=== PATIENT | male | born 1930 | race Caucasian/White ===

== ENCOUNTER 2017-03-23 12:16 | Observation (INO) | payer OTHER ==
--- NOTE | ~2017-03-23 | DS ---
Discharge Summary [facility] [address] [place]. [address] NAME: SHERRIE MAURER : 30 STATUS : DIS Ludy PAT#: [id number] AGE: 87 ADM/REG DATE : 03/23/17 MR#: [id number] REPORT SERV DATE: 03/27/17 DICTATED BY: ARPITA GIBBONS DATE: 03/26/17 REPORT STATUS : Draft TRANSCRIBED BY: MODL DATE: 03/26/17 ADMISSION DATE: 03/23/2017 DISCHARGE DATE: 03/25/2017 DISPOSITION: Discharged back to [facility]. CONDITION: Stable. DIAGNOSES: 1. Hematuria, questionable etiology/resolved. 2. Pyuria, resolved. 3. Acute kidney injury likely secondary to dehydration, improved. 4. Urinary tension. 5. Coronary artery disease with history of multiple bypass. 6. Hypertension, primary, controlled. HOSPITAL COURSE: The patient is an 87-year-old elderly male, who was transferred to [facility] Emergency Room from [facility] with complaint of reggie blood in urine. The patient was a new resident at [place], was initially assessed by nurse practitioner on the and found to have reggie blood in urine, therefore the patient was transferred to [facility] Emergency Room for further evaluation. In the [facility] Emergency Room, the patient noted to have urinary retention after a 3-way Kuo was inserted. He was therefore admitted for further evaluation. The patient was found also to have an acute kidney injury likely secondary to dehydration, improved with IV fluids, and nursing staff to provide the patient with nectar thickened fluids every 2 hours while the patient asleep to ensure the patient drinks to avoid further dehydration. The patient's admission urinalysis on 03/23/2017 revealed pyuria, he did receive a dose of Rocephin in the ER, and urine culture from that date was negative, therefore a repeat of urinalysis was obtained on 03/24/2017, this showed much improvement with WBC only 21 compared to the initial WBC of 104. The patient did receive another dose of Rocephin that evening, repeat urine culture on 03/24/2017 was negative. The patient remained afebrile and WBC had remain normal, and was recently treated for UTI pneumonia at [facility] prior to transfer to [place]. I doubt the patient had a recurring UTI, therefore no further IV antibiotic was recommended. The patient with urinary retention, a 3-way Kuo was replaced. No further reggie blood noted since 03/24/2017 and the day of discharge back to [place]. The patient was placed on Flomax on 03/24/2017, so far he has tolerated this. The patient will need an outpatient Urology consult for further evaluation of his hematuria. Possible cause could be trauma, but since now recurrent the patient can be further monitored at SNF. The patient's hemoglobin and hematocrit were stable on admission and prior to discharge. The patient is discharged back to [facility] with home medications and current new additional medication of Flomax. The patient was not on aspirin. At this point, the Discharge Summary [address] [address] NAME: SHERRIE MAURER : 30 STATUS : DIS Ludy PAT#: [id number] AGE: 87 ADM/REG DATE : 03/23/17 MR#: [id number] REPORT SERV DATE: 03/27/17 DICTATED BY: ARPITA GIBBONS DATE: 03/26/17 REPORT STATUS : Draft TRANSCRIBED BY: CANDYL DATE: 03/26/17 patient is at high risk for recurrent hematuria or worsening hematuria, not sure why the patient was not on aspirin. Given his history of coronary artery disease we will defer that to primary provider at assisted facility. DIET: The patient is on mechanical soft nectar thick liquid diet. ACTIVITY: As tolerated. The patient will need PT/OT at SNF. MEDICATIONS: See discharge JAN. FOLLOWUP: 1. SNF to arrange outpatient followup appointment with a urologist for further evaluation of hematuria. 2. Kuo care, per facility protocol and can start bladder training to try to attempt and discontinue Kuo after seven days of being on Flomax or until Urology clears. DICTATED BY: Feli Gonzalez NP CLP/MODL Arpita Gibbons M.D. / [id number] CC: Arpita Gibbons M.D.
--- NOTE | ~2017-03-23 | HP ---
History And Physical [place] [id number] [place]. [address] NAME: SHERRIE MAURER : 30 STATUS : DIS Ludy PAT#: [id number] AGE: 87 ADM/REG DATE : 03/23/17 MR#: [id number] REPORT SERV DATE: 03/26/17 DICTATED BY: ARPITA GIBBONS DATE: 03/24/17 REPORT STATUS : Draft TRANSCRIBED BY: MODJon DATE: 03/24/17 DATE OF ADMISSION: 03/23/2017 CHIEF COMPLAINT: Hematuria. HISTORY OF PRESENT ILLNESS: The patient is an 87-year-old male, who was transferred from [facility] for reggie blood in urine. The patient is a new resident of [facility], he was just recently admitted on 03/19/2017 from [facility], where he was treated for UTI, pneumonia, dehydration, and DM. The patient was seen by nurse practitioner yesterday and found to have bloody urine and therefore was sent to [facility] Emergency Room for further evaluation of his hematuria. The patient is very hard of hearing. Unable to obtain complete medical, family, and social history. No family members at bedside. Next, I discussed case with the patient's nurse practitioner at [facility], who reports that she had just met the patient for the first time yesterday when on her initial admission assessment the patient with very hard of hearing did not have much complaint of pain, and she was not sure of the source of the patient's hematuria. She reports APS is involved in this patient's care. The patient was residing with granddaughter prior to his recent hospitalization at [facility]. Since the patient is a poor historian and very hard of hearing, unable to obtain complete medical, family, and social history. Most information obtained from reviewing records sent by [facility] H and P that was obtained by Candido from [facility] and more ER notes yesterday. ALLERGIES: CODEINE. CODE STATUS: Full code. MEDICATIONS: Home medications currently zinc sulfate at bedtime, vitamin C 500 mg twice a day, metoprolol 25 mg daily, and multivitamins daily. PAST MEDICAL HISTORY: To include: 1. Coronary artery disease with history of NH and multiple coronary artery bypass graftings, unsure of vessel and date. 2. History of prostate problem, unsure exactly the issue. 3. History of colon cancer, possibly in 2007 with surgical intervention. 4. Large ventral hernia. 5. 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 6. Recently treated for pneumonia, UTI, DM. 7. History of anemia secondary to chronic disease. 8. History of sacral pressure ulcers, stage IV. 9. Hypertension, primary. 10.Severe protein-calorie malnutrition. 11.History of dehydration. History And Physical [address] [address] NAME: SHERRIE MAURER : 30 STATUS : DIS Ludy PAT#: [id number] AGE: 87 ADM/REG DATE : 03/23/17 MR#: [id number] REPORT SERV DATE: 03/26/17 DICTATED BY: ARPITA GIBBONS DATE: 03/24/17 REPORT STATUS : Draft TRANSCRIBED BY: RUDY DATE: 03/24/17 PAST SURGICAL HISTORY: Abdominal surgery, likely colectomy for colon cancer in 2007, and multiple bypasses. SOCIAL HISTORY: The patient with no history of smoking, drinking, or any illicit drug use. The patient is a new resident of [facility]. Previous to that, he resided with granddaughter, but currently APS is involved. FAMILY HISTORY: Unable to obtain, and records do not show much of family history. REVIEW OF SYSTEMS: The patient reports not being able to hear in both ears. He denies any pain, chest or abdomen. He denies any breathing problem. He is complaining of constipation. He reports he is on a bedpan, but still has not had a bowel movement. CURTAIN STRETCHER from [facility] reports the patient is wheelchair bound. PHYSICAL EXAMINATION: VITAL SIGNS: BP of 134/60, pulse of 64, respiratory rate 16, temp 97.7, sat O2 95% on room air, weight of 71.27 kg, BMI 23.9. Total fluid intake in last 24 hours 632 and urine output was 1800. GENERAL: The patient is an elderly male, in no acute distress noted. NEURO: The patient is alert, but very hard of hearing. No acute focal deficit noted. Strength in bilateral upper extremity 4/5 and lower extremity 3/5. HEENT: Oral mucosa is moist. Very [place]. Tongue clear. Eyes, nonicteric bilaterally, PERRL. NECK: No pain on palpation. No JVD noted. Trachea is midline. CHEST: Noted a well-healed sternal scar, consistent with surgical history of bypass. LUNGS: Clear to auscultation bilaterally. No wheezing or rhonchi noted. CV: Regular rate and rhythm. Normal S1 and S2. No murmurs noted. ABDOMEN: Noted large ventral hernia, but abdomen is soft and nontender. Bowel sounds x4 quadrants. : Kuo in use, noted dark urine in bag, but no obvious reggie hematuria noted. EXTREMITIES: Noted generalized arthritic changes in joints, especially in hands and feet. No edema noted. Sequential device in use. IV FLUIDS: Normal saline at KVO. LABORATORY DATA: 1. Urinalysis on 03/23/2017 revealed cloudy, pH of 5.0, negative nitrite, rbc greater than 182, wbc 104. Urine culture from 03/23 was negative. 2. CMP on 03/23 revealed sodium of 146, potassium 4.5, chloride 118, CO2 of 23, BUN 30, creatinine 1.63, glucose of 104, and GFR of 37. AST 49, bilirubin 0.8, total protein 5.6, albumin 2.1, alkaline phosphatase 211, ALT within normal limits. CBC revealed 8.8 WBC, hemoglobin 9.7, hematocrit 29.3, platelet of 245. INR 1.3, PT of 16.3. ASSESSMENT: 1. Hematuria, question etiology. 2. Pyuria. 3. Acute kidney injury, likely secondary to dehydration or volume deficit. History And Physical [address] [address] NAME: SHERRIE MAURER : 30 STATUS : DIS Ludy PAT#: [id number] AGE: 87 ADM/REG DATE : 03/23/17 MR#: [id number] REPORT SERV DATE: 03/26/17 DICTATED BY: ARPITA GIBBONS DATE: 03/24/17 REPORT STATUS : Draft TRANSCRIBED BY: RUDY DATE: 03/24/17 4. Urinary retention. 5. Coronary artery disease with history of multiple bypasses. 6. Hypertension, primary, controlled. 7. History of anemia secondary to chronic disease. 8. Dysphagia. 9. Debility. 10.Severe protein-calorie malnutrition. 11.Constipation. 12.Hard of hearing bilaterally. PLAN: Discussed plan of care with Dr. Arpita Gibbons. 1. Continue Kuo at this time, we will check if it is three way to ensure that if the patient needs to be irrigated, we will have access. If not, we will need to replace the Kuo with three way so we can prepare the patient for discharge back to [place], but the patient right now will likely need his Kuo. We will repeat urinalysis today. The patient's urine culture on 03/23 was negative, doubt has UTI, likely wbc is reactive to the patient's hematuria. The patient did receive Rocephin today. The patient is afebrile, his admission WBC was 8.8. We will not continue any antibiotic at this time given the patient recently completed treatment for UTI and pneumonia at [facility] with aztreonam. 2. I will continue Kuo care per hospital protocol and monitor output. 3. The patient with a history of chronic anemia, I am not sure of baseline, but admission hemoglobin and hematocrit were pretty stable. We will obtain a repeat CBC today to ensure the patient's anemia is stable. The patient will likely need some iron supplement. Right now, we will continue home multivitamin. 4. We will continue to monitor the patient's telemetry for any signs and symptoms of acute coronary syndrome. The patient without any complaint of chest pain will continue home regimen of metoprolol 25 mg daily. The patient is at risk for recurrent acute NH. 5. We will give the patient extra IV fluid, did receive about 500 mL while at ER. The patient's admission creatinine was 1.63. We will repeat BMP today to reassess creatinine and give extra 1 L of IV fluids. We will need to encourage the patient to drink every two hours while awake from 8 a.m. to 8 p.m. The patient is at risk for recurrent dehydration and worsening acute kidney injury. 6. The patient is complaining of constipation. We will give MiraLax and if needed Dulcolax suppository, we will have that available p.r.n. along with milk of mag p.r.n. if MiraLax is ineffective. The patient is at risk for bowel obstruction. 7. If the patient was to stay longer than 48 hours and more, we will need to have PT re- evaluate the patient. Per [facility] STRETCHER at [facility], the patient is wheelchair bound. We will continue sequential device for now for DVT prophylaxis given questionable hematuria and risk for a DVT. 8. We will obtain a renal ultrasound for further evaluation of hematuria. If this is negative, we will keep the patient on Kuo, we will initiate Flomax p.o. regimen for urinary retention, monitor for further hematuria and this could be done at [facility], so we hope to discharge the patient back to [place] once further evaluation is negative, urinalysis is negative, H and H are stable, and DM has improved. His labs to be monitored at the SNF as well. 9. The patient is a full code, POLST form is in chart. History And Physical [address] [address] NAME: SHERRIE MAURER : 30 STATUS : DIS Ludy PAT#: [id number] AGE: 87 ADM/REG DATE : 03/23/17 MR#: [id number] REPORT SERV DATE: 03/26/17 DICTATED BY: ARPITA GIBBONS DATE: 03/24/17 REPORT STATUS : Draft TRANSCRIBED BY: CANDYL DATE: 03/24/17 DICTATED BY: Feli Gonzalez NP CLP/MODL Arpita Gibbons M.D. / [id number] CC: Arpita Gibbons M.D.
[2017-03-23 14:16] LABS: ASCORBIC ACID (UR NOT ORDER) NEG (NEG); BILIRUBIN, URINE NEGATIVE (NEG); ER URINALYSIS TAT 0 Hrs 23 Mins; KETONE, URINE NEGATIVE (NEG); LEUKOCYTE ESTERASE(NOT OR MOD (NEG); NITRITE (URINE) NEG (NEG); WBC (NOT ORDERED) (RFLEX) 104 (0-5)
[2017-03-23 14:27] LABS: BASOPHILS 0.5 %; BASOPHILS ABSOLUTE 0.04 10/3/uL (0.0-0.16); EOSINOPHILS 3.1 %; EOSINOPHILS ABSOLUTE 0.27 10/3/uL (0.0-0.53); HEMATOCRIT 29.3 % (40.0-51.0); HEMOGLOBIN 9.7 g/dL (13.6-17.8); IMMATURE GRANULOCYTES 0.2 %; IMMATURE GRANULOCYTES ABSOLUTE 0.02 10/3/uL (0.0-0.11); LYMPHOCYTES ABSOLUTE 1.49 10/3/uL (0.67-4.30); MEAN CORPUS HGB CONC 33.1 g/dL (32.0-36.0); MEAN CORPUSCULAR HEMOGLOB 31.5 pg (26.0-34.0); MEAN CORPUSCULAR VOLUME 95.1 fL (80-100); MEAN PLATELET VOLUME 9.1 fL (9.2-13.0); MONOCYTES 8.8 %; MONOCYTES ABSOLUTE 0.77 10/3/uL (0.21-1.20); NEUTROPHILS 70.4 %; PLATELET COUNT 245 10/3/uL (150-400); RBC DISTRIBUTION WIDTH 17.6 % (12.0-16.0); RED CELL COUNT 3.08 10/6/uL (4.7-6.1); WHITE BLOOD CELLS 8.8 10/3/uL (4.5-10.5)
[2017-03-23 14:28] LABS: ER CBC TAT 0 Hrs 08 Mins; MANUAL DIFF NO %
[2017-03-23 14:35] LABS: INTERNATIONAL NORMAL RATI 1.3 UNITS (-); PROTIME (NOT ORD) 16.3 SEC (12.0-14.5)
[2017-03-23 14:45] LABS: A/G RATIO 0.6 (0.7-1.9); ALBUMIN 2.1 G/DL (3.5-5.0); ALKALINE PHOSPHATASE 211 U/L (45-117); BUN (BLOOD UREA NITROGEN) 30 MG/DL (6-23); CHLORIDE, SERUM 118 MMOL/L (96-112); CO2 (CARBON DIOXIDE) 23 MMOL/L (24-34); CREATININE 1.63 MG/DL (0.70-1.30); GFR AFRICAN AMERICAN 43 ML/MIN (>=60); GFR NON AFRICAN AMERICAN 37 ML/MIN (>=60); GLOBULIN 3.5 G/DL (2.5-4.1); GLUCOSE, SERUM 104 MG/DL (60-99); POTASSIUM, SERUM 4.5 MMOL/L (3.5-5.3); SGOT(AST) 49 U/L (5-40); SGPT(ALT) 19 U/L (5-65); SODIUM, SERUM 146 MMOL/L (135-148); TOTAL BILIRUBIN 0.8 MG/DL (0-1.2); TOTAL PROTEIN 5.6 G/DL (6.0-8.5)
[2017-03-23] MEDS ORDERED: ZINC220C PO (15:35)
[2017-03-23] MEDS ORDERED: VITC500 PO (15:36)
[2017-03-23] MEDS ORDERED: LOP25 PO (15:37)
[2017-03-23] MEDS ORDERED: MULTIPLE VIT PO (15:37)
[2017-03-24 16:01] LABS: ASCORBIC ACID (UR NOT ORDER) NEG (NEG); BILIRUBIN, URINE NEGATIVE (NEG); KETONE, URINE NEGATIVE (NEG); LEUKOCYTE ESTERASE(NOT OR SMALL (NEG); WBC (NOT ORDERED) (RFLEX) 21 (0-5)
[2017-03-24 17:30] LABS: HEMATOCRIT 31.7 % (40.0-51.0); HEMOGLOBIN 10.7 g/dL (13.6-17.8)
[2017-03-24 17:42] LABS: BUN (BLOOD UREA NITROGEN) 28 MG/DL (6-23); CALCIUM, SERUM 7.7 MG/DL (8.5-10.4); CHLORIDE, SERUM 111 MMOL/L (96-112); CO2 (CARBON DIOXIDE) 23 MMOL/L (24-34); CREATININE 1.62 MG/DL (0.70-1.30); GFR AFRICAN AMERICAN 44 ML/MIN (>=60); GFR NON AFRICAN AMERICAN 38 ML/MIN (>=60); GLUCOSE, SERUM 104 MG/DL (60-99); POTASSIUM, SERUM 4.8 MMOL/L (3.5-5.3); SODIUM, SERUM 142 MMOL/L (135-148)
[2017-03-24 18:54] LABS: ASCORBIC ACID (UR NOT ORDER) NEG (NEG); BILIRUBIN, URINE NEGATIVE (NEG); KETONE, URINE NEGATIVE (NEG); LEUKOCYTE ESTERASE(NOT OR MOD (NEG); WBC (NOT ORDERED) (RFLEX) 62 (0-5)
[2017-03-25 04:35] LABS: BASOPHILS 0.5 %; BASOPHILS ABSOLUTE 0.04 10/3/uL (0.0-0.16); EOSINOPHILS 4.2 %; EOSINOPHILS ABSOLUTE 0.32 10/3/uL (0.0-0.53); HEMATOCRIT 28.9 % (40.0-51.0); HEMOGLOBIN 9.7 g/dL (13.6-17.8); IMMATURE GRANULOCYTES 0.1 %; IMMATURE GRANULOCYTES ABSOLUTE 0.01 10/3/uL (0.0-0.11); LYMPHOCYTES 19.1 %; LYMPHOCYTES ABSOLUTE 1.47 10/3/uL (0.67-4.30); MEAN CORPUS HGB CONC 33.6 g/dL (32.0-36.0); MEAN CORPUSCULAR HEMOGLOB 31.7 pg (26.0-34.0); MEAN CORPUSCULAR VOLUME 94.4 fL (80-100); MEAN PLATELET VOLUME 9.5 fL (9.2-13.0); MONOCYTES 8.9 %; MONOCYTES ABSOLUTE 0.68 10/3/uL (0.21-1.20); NEUTROPHILS 67.2 %; NEUTROPHILS ABSOLUTE 5.16 10/3/uL (2.02-8.40); PLATELET COUNT 263 10/3/uL (150-400); RBC DISTRIBUTION WIDTH 17.6 % (12.0-16.0); RED CELL COUNT 3.06 10/6/uL (4.7-6.1); WHITE BLOOD CELLS 7.7 10/3/uL (4.5-10.5)
[2017-03-25 04:37] LABS: MANUAL DIFF NO %
[2017-03-25 04:47] LABS: BUN (BLOOD UREA NITROGEN) 28 MG/DL (6-23); CALCIUM, SERUM 7.6 MG/DL (8.5-10.4); CHLORIDE, SERUM 112 MMOL/L (96-112); CO2 (CARBON DIOXIDE) 20 MMOL/L (24-34); CREATININE 1.49 MG/DL (0.70-1.30); GFR AFRICAN AMERICAN 48 ML/MIN (>=60); GFR NON AFRICAN AMERICAN 42 ML/MIN (>=60); GLUCOSE, SERUM 115 MG/DL (60-99); POTASSIUM, SERUM 4.6 MMOL/L (3.5-5.3); SODIUM, SERUM 142 MMOL/L (135-148)
== END 2017-03-25 14:26 ==
LOC: ER 12:16 → CDU1 15:20 → CDU2 17:47
PROVIDERS: Emergency Medicine; Family Medicine; Nurse Practitioner Family
DX: N17.9 Acute kidney failure, unspecified (principal); I25.10 Atherosclerotic heart disease of native coronary artery without angina pectoris; I25.2 Old myocardial infarction; I10 Essential (primary) hypertension; K59.00 Constipation, unspecified; D64.9 Anemia, unspecified; N39.0 Urinary tract infection, site not specified; R53.81 Other malaise; E43 Unspecified severe protein-calorie malnutrition; Z79.899 Other long term (current) drug therapy; Z88.5 Allergy status to narcotic agent; Z98.890 Other specified postprocedural states; Z95.1 Presence of aortocoronary bypass graft
CPT/HCPCS: 76775; 80048; 80053; 81001; 85014; 85018; 85025; 85610; 87086; 96374; 96376; 97162-GP; 99284; A9270-GY; G0378; G8978-CK-GP; G8979-CJ-GP

== ENCOUNTER 2017-04-02 10:54 | Inpatient (IN) | payer OTHER ==
--- NOTE | ~2017-04-02 | DS ---
Discharge Summary [facility] [address] [place]. [address] NAME: SHERRIE MAURER : 30 STATUS : DIS IN PAT#: [id number] AGE: 87 ADM/REG DATE : 04/02/17 MR#: [id number] REPORT SERV DATE: 04/20/17 DICTATED BY: ARPITA GIBBONS DATE: 04/19/17 REPORT STATUS : Draft TRANSCRIBED BY: MODJon DATE: 04/19/17 Data Collection from hospitalization DISCHARGE DIAGNOSES: 1. Nausea and vomiting, likely secondary to large ventral hernia. 2. 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 3. Large ventral hernia. 4. 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 5. Severe protein-calorie malnutrition, secondary to failure to thrive. 6. Acute kidney injury on stage III chronic kidney disease - continue comfort measures. 7. Respiratory insufficiency. 8. Right lung pneumonia - healthcare-acquired pneumonia. 9. Hypertension. 10.History of colon cancer. 11.Probable benign prostatic hypertrophy. 12.Anemia of chronic disease. CONSULTATIONS: Tobias Pope M.D. PROCEDURES PERFORMED: CT scan of the abdomen and pelvis without contrast on 04/05/2017. MEDICATIONS: Vitamin C 500 mg twice a day, multivitamins one tablet every morning, Lopressor 25 mg every morning, Protonix 40 mg before breakfast, Flomax 0.4 mg with supper, Tylenol 650 mg as needed orally or rectally, levofloxacin 750 mg every 48 hours x2 doses, Zofran 4 mg every six hours as needed for nausea and vomiting, and Phenergan 25 mg every six hours as needed for severe nausea and vomiting. CONDITION AT DISCHARGE: Stable. DISPOSITION: The patient was discharged to [facility] to be followed by hospice on a low-sodium diet with activities as instructed. HOSPITAL COURSE: This is an 87-year-old man who presented from [facility] with recurrent urinary tract infection and intractable nausea and vomiting. The patient had been in the hospital recently for urinary infection and was discharged to [place] and now presented with a two-day history of essentially being n.p.o. due to nausea and vomiting. He was found in the emergency department to have an ongoing urinary infection. He was admitted to the hospital at this time for further evaluation and treatment. Upon admission, urine revealed moderate bacteria. There were 58 white blood cells per high- power field. There was large leukocyte esterase, nitrite negative. Liver enzymes were normal. The following day, his appetite was poor. His lungs were clear. He had no wheezing. He denied any pain. On 04/05/2017, the patient is hard of hearing, but he was able to communicate. He denied shortness of breath, chest pain, nausea, vomiting, or abdominal pain at this time. The next day, he remained stable. A CT scan of the abdomen and pelvis without contrast had been performed. There was a large geographic hypodense of the soft tissue attenuation lesion, replacing most of the right lobe of the liver suspicious for a large primary or metastatic liver malignancy. He had moderate ascites. There were Discharge Summary [address] . [address] NAME: SHERRIE MAURER : 30 STATUS : DIS IN PAT#: [id number] AGE: 87 ADM/REG DATE : 04/02/17 MR#: [id number] REPORT SERV DATE: 04/20/17 DICTATED BY: ARPITA GIBBONS DATE: 04/19/17 REPORT STATUS : Draft TRANSCRIBED BY: RUDY DATE: 04/19/17 multiple bilateral renal cortical cysts. There was a very large ventral hernia. He had bibasilar subsegmental atelectasis and [id number] pleural effusion. He also had cardiomegaly. He did have an episode of vomiting during the night, but none reported that morning. Discharge planning was performed. A Surgery consult was requested. He was evaluated by Physical Therapy. The patient was seen by Dr. Tobias Pope. The patient had a very large ventral hernia and a liver mass. The patient does have a history of colon cancer. He reviewed the patient's CT scan. The liver mass was felt to be probably malignant. He did not feel that the patient was a candidate for any surgical intervention. Palliative/hospice care was recommended. On 04/07/2017, a discussion was held with the patient's family. A hospice referral would be made once the patient was admitted to the [facility] at [facility]. He had no nausea or vomiting at this time. Discharge instructions were given. Due to his stable condition, he was discharged to [facility] to be followed by hospice with the above-stated instructions. Information collected by: Carolyn Romero I submit the above information as my discharge summary. TG/RUDY Arpita Gibbons M.D. / [id number] CC: Berry Hernandez Jr., M.D. [facility]
--- NOTE | ~2017-04-02 | HP ---
History And Physical [address] [address] NAME: SHERRIE MAURER : 30 STATUS : ADM IN [facility]#: [id number] AGE: 87 ADM/REG DATE : 04/02/17 MR#: [id number] REPORT SERV DATE: 04/04/17 DICTATED BY: HARSHAD CALLE DATE: 04/04/17 REPORT STATUS : Draft TRANSCRIBED BY: MODL DATE: 04/04/17 DATE OF ADMISSION: 04/02/2017 CHIEF COMPLAINT: This is an 87-year-old gentleman who presents from [facility] with recurrent urinary tract infection and intractable nausea and vomiting. HISTORY OF PRESENT ILLNESS: He was in this hospital recently for urinary infection and discharged to [place] and now presents with a two-day history of essentially being n.p.o. due to nausea and vomiting and was found in the emergency department to have ongoing urinary infection. REVIEW OF SYSTEMS: His weight is down slightly and he is weaker, but denies pain and has had no hematemesis, hematochezia, constipation, diarrhea, or trauma. PAST MEDICAL HISTORY: Includes recurrent urinary infection with hematuria, acute kidney injury, CKD 3, coronary artery disease, hypertension, anemia of chronic disease, chronic debility, hearing impairment, probable BPH, history of colon cancer nine years ago with surgical resection, stage IV sacral pressure ulcer, protein-calorie malnutrition, and several coronary bypasses. SOCIAL HISTORY: Single and was previously living with his granddaughter. No alcohol, tobacco, or drugs; and currently a [facility] resident. ALLERGIES: CODEINE. CODE STATUS: Full code. HOME MEDICATIONS: Include vitamin C 500 mg b.i.d., Lopressor 25 mg daily, multivitamin daily, Flomax 0.4 mg nightly. PHYSICAL EXAMINATION: VITAL SIGNS: BP 132/50, pulse 88 and regular, respirations 16, afebrile, saturation 98% on room air. GENERAL: He is drowsy, but arouses and orients to person fairly easily. Extremely hard of hearing. Otherwise, cranial nerve function appears intact. Face symmetrical. Mucous membranes moist. NECK: Supple. No mass. No JVD. CHEST: Clear. No wheezes. HEART: Regular rate and rhythm with fair peripheral pulses. ABDOMEN: Supple, nontender, nondistended. Bowel sounds quiet. AND RECTAL: Deferred. EXTREMITIES: Wasting diffusely. No edema. NEUROLOGIC: Grossly intact to sensory and motor, but diffuse weakness. No tremors. No pathological reflexes. No palpable cervical or axillary lymph nodes. History And Physical [address] [address] NAME: SHERRIE MAURER : 30 STATUS : ADM IN [facility]#: [id number] AGE: 87 ADM/REG DATE : 04/02/17 MR#: [id number] REPORT SERV DATE: 04/04/17 DICTATED BY: HARSHAD CALLE DATE: 04/04/17 REPORT STATUS : Draft TRANSCRIBED BY: MODL DATE: 04/04/17 LABORATORY: WBC 6.7, H and H 10.3 and 29.9, platelets 264. Electrolytes normal. BUN 43, creatinine 2.35, glucose 88. Urine with moderate bacteria, 58 wbc's per high-power field, leukocyte esterase large, nitrite negative. Liver enzymes normal. IMPRESSION: Intractable nausea and vomiting, urinary tract infection, coronary artery disease, sacral decubitus related to malnutrition and being nonambulatory, severe hearing impairment, anemia of chronic disease. PLAN: Plan is for empiric IV Rocephin and close monitoring of electrolytes. Encourage protein intake. Bronchodilator protocol. Electrolyte protocol and DVT precautions. Plan to return to skilled care when discharged and stable. BP/MODL Harshad Calle M.D. / [id number] CC: Greg Grissom M.D.
[~2017-04-02 10:54] MED LIST: LOP25 PO; MULTIPLE VIT PO; VITC500 PO; ZINC220C PO
[2017-04-02 12:31] LABS: BASOPHILS 0.3 %; BASOPHILS ABSOLUTE 0.02 10/3/uL (0.0-0.16); EOSINOPHILS 0.9 %; EOSINOPHILS ABSOLUTE 0.06 10/3/uL (0.0-0.53); ER CBC TAT 0 Hrs 07 Mins; HEMATOCRIT 29.9 % (40.0-51.0); HEMOGLOBIN 10.3 g/dL (13.6-17.8); IMMATURE GRANULOCYTES 0.3 %; IMMATURE GRANULOCYTES ABSOLUTE 0.02 10/3/uL (0.0-0.11); LYMPHOCYTES 17.4 %; LYMPHOCYTES ABSOLUTE 1.16 10/3/uL (0.67-4.30); MEAN CORPUS HGB CONC 34.4 g/dL (32.0-36.0); MEAN CORPUSCULAR HEMOGLOB 32.3 pg (26.0-34.0); MEAN CORPUSCULAR VOLUME 93.7 fL (80-100); MEAN PLATELET VOLUME 9.4 fL (9.2-13.0); MONOCYTES 7.6 %; MONOCYTES ABSOLUTE 0.51 10/3/uL (0.21-1.20); NEUTROPHILS 73.5 %; NEUTROPHILS ABSOLUTE 4.91 10/3/uL (2.02-8.40); PLATELET COUNT 264 10/3/uL (150-400); RBC DISTRIBUTION WIDTH 18.3 % (12.0-16.0); RED CELL COUNT 3.19 10/6/uL (4.7-6.1); WHITE BLOOD CELLS 6.7 10/3/uL (4.5-10.5)
[2017-04-02 12:32] LABS: MANUAL DIFF NO %
[2017-04-02 12:47] LABS: A/G RATIO 0.5 (0.7-1.9); CALCIUM, SERUM 7.8 MG/DL (8.5-10.4); CHLORIDE, SERUM 111 MMOL/L (96-112); CO2 (CARBON DIOXIDE) 19 MMOL/L (24-34); DIRECT BILIRUBIN 0.2 MG/DL (0.0-0.4); INDIRECT BILIRUBIN(NOT ORDER) 0.5 MG/DL (0.1-0.9); SGOT(AST) 51 U/L (5-40); SGPT(ALT) 18 U/L (5-65); SODIUM, SERUM 141 MMOL/L (135-148); TOTAL BILIRUBIN 0.7 MG/DL (0-1.2)
[2017-04-02 12:49] LABS: ALKALINE PHOSPHATASE 198 U/L (45-117); BUN (BLOOD UREA NITROGEN) 43 MG/DL (6-23); CREATININE 2.35 MG/DL (0.70-1.30); GFR AFRICAN AMERICAN 28 ML/MIN (>=60); GFR NON AFRICAN AMERICAN 24 ML/MIN (>=60); GLUCOSE, SERUM 88 MG/DL (60-99)
[2017-04-02 12:59] LABS: ASCORBIC ACID (UR NOT ORDER) 40 (NEG); BILIRUBIN, URINE NEGATIVE (NEG); ER URINALYSIS TAT 0 Hrs 16 Mins; KETONE, URINE TRACE MG/DL (NEG); LEUKOCYTE ESTERASE(NOT OR LARGE (NEG); NITRITE (URINE) NEG (NEG); WBC (NOT ORDERED) (RFLEX) 58 (0-5)
[2017-04-02] MEDS ORDERED: FLOMAX4 PO (15:15)
[2017-04-02] MEDS ORDERED: MULTIVITAMI1 PO (15:16)
[2017-04-02] MEDS ORDERED: LOP25 PO (15:16)
[2017-04-02] MEDS ORDERED: VITC500 PO (15:19)
[2017-04-02] MEDS ORDERED: SPS 15 GM/60 ML PO (15:22)
[2017-04-04 06:21] LABS: BASOPHILS 0.5 %; BASOPHILS ABSOLUTE 0.03 10/3/uL (0.0-0.16); EOSINOPHILS 6.1 %; EOSINOPHILS ABSOLUTE 0.34 10/3/uL (0.0-0.53); HEMATOCRIT 27.7 % (40.0-51.0); HEMOGLOBIN 9.5 g/dL (13.6-17.8); IMMATURE GRANULOCYTES 0.4 %; IMMATURE GRANULOCYTES ABSOLUTE 0.02 10/3/uL (0.0-0.11); LYMPHOCYTES 19.1 %; LYMPHOCYTES ABSOLUTE 1.07 10/3/uL (0.67-4.30); MEAN CORPUS HGB CONC 34.3 g/dL (32.0-36.0); MEAN CORPUSCULAR HEMOGLOB 32.1 pg (26.0-34.0); MEAN CORPUSCULAR VOLUME 93.6 fL (80-100); MEAN PLATELET VOLUME 9.1 fL (9.2-13.0); MONOCYTES 10.5 %; MONOCYTES ABSOLUTE 0.59 10/3/uL (0.21-1.20); NEUTROPHILS 63.4 %; NEUTROPHILS ABSOLUTE 3.55 10/3/uL (2.02-8.40); PLATELET COUNT 212 10/3/uL (150-400); RBC DISTRIBUTION WIDTH 18.2 % (12.0-16.0); RED CELL COUNT 2.96 10/6/uL (4.7-6.1); WHITE BLOOD CELLS 5.6 10/3/uL (4.5-10.5)
[2017-04-04 06:22] LABS: MANUAL DIFF NO %
[2017-04-04 06:29] LABS: BUN (BLOOD UREA NITROGEN) 40 MG/DL (6-23); CALCIUM, SERUM 7.8 MG/DL (8.5-10.4); CHLORIDE, SERUM 111 MMOL/L (96-112); CO2 (CARBON DIOXIDE) 23 MMOL/L (24-34); CREATININE 2.37 MG/DL (0.70-1.30); GFR AFRICAN AMERICAN 28 ML/MIN (>=60); GFR NON AFRICAN AMERICAN 24 ML/MIN (>=60); GLUCOSE, SERUM 93 MG/DL (60-99); SODIUM, SERUM 142 MMOL/L (135-148)
[2017-04-05 05:24] LABS: BASOPHILS 0 %; EOSINOPHILS 0 %; HEMATOCRIT 27.2 % (40.0-51.0); HEMOGLOBIN 9.4 g/dL (13.6-17.8); IMMATURE GRANULOCYTES 0.1 %; IMMATURE GRANULOCYTES ABSOLUTE 0.01 10/3/uL (0.0-0.11); LYMPHOCYTES 9.8 %; LYMPHOCYTES ABSOLUTE 0.72 10/3/uL (0.67-4.30); MANUAL DIFF NO %; MEAN CORPUS HGB CONC 34.6 g/dL (32.0-36.0); MEAN CORPUSCULAR HEMOGLOB 32.4 pg (26.0-34.0); MEAN CORPUSCULAR VOLUME 93.8 fL (80-100); MEAN PLATELET VOLUME 9.4 fL (9.2-13.0); MONOCYTES 10.4 %; MONOCYTES ABSOLUTE 0.77 10/3/uL (0.21-1.20); NEUTROPHILS 79.7 %; NEUTROPHILS ABSOLUTE 5.88 10/3/uL (2.02-8.40); PLATELET COUNT 220 10/3/uL (150-400); RBC DISTRIBUTION WIDTH 18.1 % (12.0-16.0); WHITE BLOOD CELLS 7.4 10/3/uL (4.5-10.5)
[2017-04-05 05:37] LABS: BUN (BLOOD UREA NITROGEN) 38 MG/DL (6-23); CHLORIDE, SERUM 112 MMOL/L (96-112); CO2 (CARBON DIOXIDE) 20 MMOL/L (24-34); CREATININE 2.43 MG/DL (0.70-1.30); GFR AFRICAN AMERICAN 27 ML/MIN (>=60); GFR NON AFRICAN AMERICAN 23 ML/MIN (>=60); POTASSIUM, SERUM 4.9 MMOL/L (3.5-5.3); SODIUM, SERUM 138 MMOL/L (135-148)
[2017-04-05 05:38] LABS: GLUCOSE, SERUM 131 MG/DL (60-99)
[2017-04-05 23:04] LABS: BASOPHILS 0.5 %; BASOPHILS ABSOLUTE 0.03 10/3/uL (0.0-0.16); EOSINOPHILS 4.2 %; EOSINOPHILS ABSOLUTE 0.26 10/3/uL (0.0-0.53); HEMOGLOBIN 9.4 g/dL (13.6-17.8); IMMATURE GRANULOCYTES 0.2 %; IMMATURE GRANULOCYTES ABSOLUTE 0.01 10/3/uL (0.0-0.11); LYMPHOCYTES 16.7 %; LYMPHOCYTES ABSOLUTE 1.04 10/3/uL (0.67-4.30); MEAN CORPUS HGB CONC 34.8 g/dL (32.0-36.0); MEAN CORPUSCULAR HEMOGLOB 32.8 pg (26.0-34.0); MEAN CORPUSCULAR VOLUME 94.1 fL (80-100); MEAN PLATELET VOLUME 9.2 fL (9.2-13.0); MONOCYTES 7.2 %; MONOCYTES ABSOLUTE 0.45 10/3/uL (0.21-1.20); NEUTROPHILS 71.2 %; NEUTROPHILS ABSOLUTE 4.45 10/3/uL (2.02-8.40); PLATELET COUNT 206 10/3/uL (150-400); RBC DISTRIBUTION WIDTH 18.2 % (12.0-16.0); RED CELL COUNT 2.87 10/6/uL (4.7-6.1); WHITE BLOOD CELLS 6.2 10/3/uL (4.5-10.5)
[2017-04-05 23:12] LABS: MANUAL DIFF NO %
[2017-04-05 23:16] LABS: BUN (BLOOD UREA NITROGEN) 36 MG/DL (6-23); CALCIUM, SERUM 7.6 MG/DL (8.5-10.4); CHLORIDE, SERUM 110 MMOL/L (96-112); CO2 (CARBON DIOXIDE) 23 MMOL/L (24-34); CREATININE 2.52 MG/DL (0.70-1.30); GFR AFRICAN AMERICAN 26 ML/MIN (>=60); GFR NON AFRICAN AMERICAN 22 ML/MIN (>=60); GLUCOSE, SERUM 130 MG/DL (60-99); POTASSIUM, SERUM 4.9 MMOL/L (3.5-5.3); SODIUM, SERUM 139 MMOL/L (135-148)
[2017-04-06 05:33] LABS: BUN (BLOOD UREA NITROGEN) 36 MG/DL (6-23); CALCIUM, SERUM 7.9 MG/DL (8.5-10.4); CHLORIDE, SERUM 110 MMOL/L (96-112); CO2 (CARBON DIOXIDE) 22 MMOL/L (24-34); CREATININE 2.53 MG/DL (0.70-1.30); GFR AFRICAN AMERICAN 25 ML/MIN (>=60); GFR NON AFRICAN AMERICAN 22 ML/MIN (>=60); PHOSPHORUS, SERUM 2.7 MG/DL (2.5-4.5); SODIUM, SERUM 141 MMOL/L (135-148)
[2017-04-06 05:34] LABS: GLUCOSE, SERUM 95 MG/DL (60-99)
[2017-04-06 05:49] LABS: PREALBUMIN 5.5 MG/DL (17.0-43.0)
== END 2017-04-07 14:37 | DRG 393 ==
LOC: ER 10:54 → 4EA 16:34
PROVIDERS: Emergency Medicine; Family Medicine
DX: K43.9 Ventral hernia without obstruction or gangrene (principal); E43 Unspecified severe protein-calorie malnutrition; L89.159 Pressure ulcer of sacral region, unspecified stage; J18.9 Pneumonia, unspecified organism; N17.9 Acute kidney failure, unspecified; N39.0 Urinary tract infection, site not specified; N18.3 Chronic kidney disease, stage 3 (moderate); I25.10 Atherosclerotic heart disease of native coronary artery without angina pectoris; Z68.23 Body mass index [BMI] 23.0-23.9, adult; E86.0 Dehydration
CPT/HCPCS: 71010; 74000; 74022; 74176; 80048; 80053; 81001; 82248; 83690; 83735; 84100; 84134; 85025; 87086; 93005; 94640; 96374; 96375; 97162-GP; 97530-GP; 99285; A9270-GY; G8978-CL-GP; G8979-CL-GP; G8980-CL-GP; J1956; J2405; J2550; J3370